=== PATIENT | male | born 1940 | race Caucasian/White ===

== ENCOUNTER → 2017-06-08 | Outpatient (CLI) | payer OTHER, BC ==
[2017-06-08 11:54] LABS: BASOPHILS % (AUTO) 1.1 % (0.2-1.0); EOSINOPHILS # (AUTO) 0.3 x10^3/uL (0.0-0.2); EOSINOPHILS % (AUTO) 6.4 % (0.9-2.9); HEMATOCRIT 41.2 % (42.0-54.0); HEMOGLOBIN 14.2 g/dL (13.5-18.0); LYMPHOCYTES # (AUTO) 0.6 X10^3/uL (1.3-2.9); LYMPHOCYTES % (AUTO) 14.2 % (21.0-51.0); MEAN CORPUSCULAR HEMOGLOBIN 31.3 pg (27.0-34.0); MEAN CORPUSCULAR HGB CONC 34.4 g/dL (33.0-35.0); MEAN CORPUSCULAR VOLUME 91.1 fL (80.0-100.0); MEAN PLATELET VOLUME 9.7 fL (7.4-11.0); MONOCYTES # (AUTO) 0.5 x10^3/uL (0.3-0.8); MONOCYTES % (AUTO) 10.4 % (0.0-13.0); NEUTROPHILS # (AUTO) 3.1 x10^3/uL (2.2-4.8); NEUTROPHILS % (AUTO) 67.9 % (42.0-75.0); PLATELET COUNT 205 X10^3/uL (150.0-450.0); RED BLOOD COUNT 4.52 X10^6/uL (4.7-6.0); RED CELL DISTRIBUTION WIDTH 13.5 % (11.6-16.5); WHITE BLOOD COUNT 4.5 X10^3/uL (3.6-10.0)
[2017-06-08 11:55] LABS: ALANINE AMINOTRANSFERASE 27 Units/L (12-78); ALBUMIN 3.6 g/dL (3.4-5.0); ALKALINE PHOSPHATASE 86 Units/L (46-116); ASPARTATE AMINO TRANSFERASE 21 Units/L (15-37); BLOOD UREA NITROGEN 15 mg/dL (7-18); CALCIUM 9.5 mg/dL (8.5-10.1); CARBON DIOXIDE 31.7 mmol/L (21-32); CHLORIDE 105 mmol/L (98-107); COR NA(FOR HYPERGLY) 140 mmol/L (136-145); CREATININE 0.92 mg/dL (0.70-1.30); SODIUM 140 mmol/L (136-145); TOTAL PROTEIN 7.3 g/dL (6.4-8.2); eGFR BLACK RACES > 60 (>60); eGFR NON BLACK RACES > 60 (>60)
[2017-06-08 12:07] LABS: TOTAL PSA 0.81 ng/mL (0.13-4.0)
[2017-06-08 12:27] LABS: ERYTHROCYTE SEDIMENTATION RATE 8 MM/HOUR (0-15)
== END ==
LOC: LAB 11:16
PROVIDERS: ATTEND Urology
DX: C67.9 Malignant neoplasm of bladder, unspecified (principal)
CPT/HCPCS: 36415; 80053; 84153; 85025; 85652

== ENCOUNTER → 2017-06-08 | Outpatient (CLI) | payer SELFPAY ==
--- NOTE | 2017-06-08 14:27 | CT ---
HISTORY: Screening. Cardiac CTA with calcium scoring Technique: Multiple axial images of the chest were obtained on a [address] from the aortic arch to the base of the heart with retrospective cardiac gating. Noncontrast evaluation of th e heart was performed for calcium scoring with prospective gating. 3D reconstructions and vessel anal ysis were performed on a vital imaging workstation. Dose reduction techniques including Automated Ex posure Control (AEC) and adjustment of mA and kV were utilized. Findings: A total calcium score of 141 is observed. The score results in a high likelihood of coronary events given the age and sex matched cohort analysis. Moderate amount of atherosclerotic plaque is seen within the left anterior descending coronary artery . Remaining coronary arterial system demonstrates no significant disease of the left main, or left ci rcumflex. In addition, no significant disease of the right coronary artery can be identified. Extracardiac findings: No pathologically enlarged lymphadenopathy can be observed. The aortic arch is unremarkable in its a ppearance with normal vascular configuration. No significant pericardial effusion can be identified. The visualized portions of the lung parenchyma are unremarkable. No lytic or blastic lesions can b e identified within the visualized bony thorax. The visualized portions of the abdomen demonstrate n ormal perfusion patterns of the spleen and liver. IMPRESSION: Total calcium score of 141 that results in a high likelihood of coronary artery events. Reported By:
== END ==
LOC: RAD 11:37
PROVIDERS: ATTEND Internal Medicine
DX: Z13.6 Encounter for screening for cardiovascular disorders (principal)